=== PATIENT | male | born 1970 | race Two or more races ===

== ENCOUNTER 2024-05-09 15:10 | Emergency (ER) | payer MEDICAID, OTHER ==
[~2024-05-09] VITALS: Ht 175.3 cm; Wt 87.0 kg
[2024-05-09] MEDS ORDERED: IBUP-1455 PO (16:15)
[2024-05-09 17:57] VITALS: BP 158/94; PULSE 71; RESP 16; TEMP 98.1; O2SAT 97
[2024-05-09] MEDS: KETOROLAC TROMETH 60MG/2ML VIAL IM ONE (17:57)
== END 2024-05-09 18:16 | disposition home or self-care (01) ==
LOC: ER 15:10
DX: S16.1XXA Strain of muscle, fascia and tendon at neck level, initial encounter (principal); S20.212A Contusion of left front wall of thorax, initial encounter; V89.2XXA Person injured in unspecified motor-vehicle accident, traffic, initial encounter; Y93.89 Activity, other specified; Y92.89 Other specified places as the place of occurrence of the external cause; Y99.8 Other external cause status
CPT/HCPCS: 72040; 96372; 99283; J1885

== ENCOUNTER 2024-07-09 09:10 | Emergency (ER) | payer MEDICAID, OTHER ==
[~2024-07-09] VITALS: Ht 165.1 cm; Wt 88.9 kg
[~2024-07-09 09:10] MED LIST: IBUP-1455 PO
--- NOTE | 2024-07-09 10:12 | ED.PDOC ---
Musculoskeletal HPI Comments 54 year old male presents for left shoulder pain x 1 day after lifting a 20 lb box reports he heard a pop and felt sudden pain Pain has been present since Worsens with abduction Denies fevers chills night sweats nausea vomiting redness around the shoulder Denies previous surgeries to the shoulder or significant injury Numbness/tingling down the arm Denies changes, shortness of breath Chief Complaint: Upper Extremity Time Seen by MD: 09:36 Reviewed Notes: Nurses Notes, Medications, Allergies Allergies: Coded Allergies: NO KNOWN ALLERGIES (Unverified , 05/09/24) Home Meds Active Scripts Ibuprofen Micronized (Ibuprofen) 800 Mg Tab, 800 MG PO Q8HP PRN, #20 TAB Prov:ALEXIS BRAVO Fritz PAC 05/09/24 Information Source: Patient Mode of Arrival: Ambulatory Past Medical History PAST MEDICAL HISTORY: Denies Surgical History: Denies all surgeries Family History Family History: Reviewed,noncontributory to illness, No family hx of Cancer, No family hx of DM, No family hx of Heart irma, No family hx of HTN, No family hx ofKidney irma, No family hx of Liver irma, No family hx of Lung irma, No family hx of Stroke Social History Smoker: Non-Smoker Alcohol: Denies ETOH Use Drugs: Denies Drug Use Lives In: Home All Other Systems: Reviewed and Negative (Per HPI) Physical Exam General Appearance: No Apparent Distress, Normal HEENT: Normal ENT Inspection, Pharynx Normal, TMs Normal Neck: Full Range of Motion, Non-Tender, Normal, Normal Inspection Respiratory: Chest Non-Tender, Lungs Clear, No Accessory Muscle Use, No Respiratory Distress, Normal Breath Sounds Cardiovascular: No Edema, No JVD, No Murmur, No Gallop, Normal Peripheral Pulses, Regular Rate/Rhythm Breast Exam: Deferred Gastrointestinal: No Organomegaly, Non Tender, No Pulsatile Mass, Normal Bowel Sounds, Soft Genitalia: Deferred Pelvic: Deferred Rectal: Deferred Extremities: No calf tenderness, Normal capillary refill, Normal inspection, Normal range of motion, Non-tender, No pedal edema Musculoskeletal : Location: Left Extremity Location: Shoulder (No gross abnormality on inspection. No shoulder drop visible. No clavicular tenderness on palpation. Palpation tenderness to coracoid process and acromion process. No scapular, supr aspinatus, infraspinatus tenderness to touch. Limited flexion passive movement due to pain. Pain with abduction. ) Apperance: Normal Neurologic: Alert, taxation consultant II-XII nml as Tested, No Motor Deficits, Normal Affect, Normal Mood, No Sensory Deficits Cerebellar Function: Normal Reflexes: Normal Skin: Dry, Normal Color, Warm Lymphatic: No Adenopathy Was a procedure done? Was a procedure done?: No Differential Diagnosis EXT Differential Diagnosis: Sprain, Arthritis, Other X-Ray, Labs, Meds, VS Vital Signs Date Time Temp Pulse Resp B/P (MAP) Pulse Ox O2 Delivery O2 Flow Rate FiO2 07/09/24 10:13 98.1 91 16 159/82 (107) 97 98.1 07/09/24 10:13 91 16 97 Room Air 07/09/24 09:37 98.1 91 16 159/82 (107) 97 Current Medications Medications (Trade) Dose Ordered Sig/Hernan Route Start Time Stop Time Status Last Admin Ketorolac Tromethamine (Toradol Injection) 60 mg ONCE ONCE IM 07/09/24 10:15 07/09/24 10:19 DC 07/09/24 10:35 X-Ray, Labs, Meds, VS Comment History and examination consistent of muscular injury X-rays ordered, read by radiologist and reviewed by me Take IBU 600 w/ food as needed for pain Recommended heat therapy Reviewed RICE management Avoid heavy lifting or strenuous activity Recommended range of motion exercises and limit heavy activity for 1 week If no improvement advised patient to return to the emergency department for follow-up. On reevaluation, patient had symptomatic improvement. Patient is stable for discharge at this time. External notes reviewed. Test results and diagnostic imaging interpreted. All diagnostic findings, discharge care, education and instructions provided Follow-up with PCP in 2 to 3 days Patient verbalized understanding and agreed to treatment plan Vital signs stable, afebrile, no acute distress noted Patient ambulatory with strong steady gait Advised to return precautions for any new or worsening symptoms, return to ER immediately for re-evaluation Patient is aware that the purpose of this visit was for an acute medical emergency requiring emergent stabilization. Chronic conditions, including malignancies have not been ruled out. Patient is instructed to follow up with PCP as directed and discharge instructions for continued care and workup. If unable to arrange follow-up, patient is to return to the emergency department for reassessment. Patient (parent or legal guardian if applicable) was given verbal and written discharge instructions and acknowledges understanding. Time of 1ST Reevaluation: 10:59 Reevaluation 1ST: Improved Patient Education/Counseling: Diagnosis, Treatment Family Education/Counseling: Diagnosis, Treatment Departure 1 Departure Time of Disposition: 11:00 Impression: Primary Impression: Shoulder sprain Qualified Codes: S43.402A - Unspecified sprain of left shoulder joint, ini tial encounter Disposition: HOME / SELF CARE / HOMELESS Condition: Stable e-Prescriptions Ibuprofen Micronized (Ibuprofen) 800 Mg Tab 800 MG PO TIDP PRN for 10 Days, #30 TAB 0 Refills Prov: DAMIAN FRENCH NP 07/09/24 Discharged With: Self Critical Care Note Critical Care Time?: No Stability Stability form required: No Heart Score Heart Score: Heart Score Response (Comments) Value History N/A 0 EKG N/A 0 Age N/A 0 Risk Factors N/A 0 Troponin N/A 0 Total 0 DAMIAN FRENCH NP Jul 09, 2024 10:12
[2024-07-09 10:13] VITALS: BP 159/82; PULSE 91; RESP 16; TEMP 98.1; O2SAT 97
[2024-07-09] MEDS: KETOROLAC TROMETH 60MG/2ML VIAL IM ONE (10:35)
--- NOTE | 2024-07-09 10:45 | DVH ---
CLINICAL INFORMATION: 54 years old, Male; pain. TECHNIQUE: 3 views of the left shoulder were obtained. COMPARISON: None FINDINGS: No acute fracture or dislocation. Mild arthritic changes at the acromioclavicular joint. W ell-circumscribed intraosseous lesion in the left proximal humerus measuring up to 1.4 cm in greatest dimension, with sclerotic rim around the lesion, most consistent with benign etiology, most likely a benign fibrous lesion or possibly an enchondroma. Overlying soft tissues are grossly unremarkable. IMPRESSION: 1. No evidence of acute bony abnormality. 2. Well-circumscribed intraosseous lesion in the left proximal humerus with no aggressive features to suggest malignancy, most likely a benign fibrous lesion or enchondroma. Correlate with clinical find ings. If clinically indicated, nonemergent MRI could be obtained.
[2024-07-09] MEDS ORDERED: IBUP-1455 PO (11:00)
== END 2024-07-09 11:14 | disposition home or self-care (01) ==
LOC: ER 09:10
DX: S43.402A Unspecified sprain of left shoulder joint, initial encounter (principal); X50.0XXA Overexertion from strenuous movement or load, initial encounter; Y93.89 Activity, other specified; Y92.89 Other specified places as the place of occurrence of the external cause; Y99.8 Other external cause status
CPT/HCPCS: 73030; 96372; 99283; J1885